=== PATIENT | male | born 2000 | race African-American/Black ===

== ENCOUNTER 2023-08-28 10:16 | Emergency (ER) | payer SELFPAY ==
[2023-08-28] MEDS ORDERED: IBUPROFEN 400 MG TABLET (FP) PO ONE (11:26)
[2023-08-28] MEDS: IBUPROFEN 400 MG TABLET (FP) PO ONE (11:32)
[2023-08-28 12:06] VITALS: BP 143/80; PULSE 86; RESP 18; TEMP 97.5; BMI 24.3
== END 2023-08-28 14:44 | disposition home or self-care (01) ==
LOC: JERFT 10:16
DX: S42.402A Unspecified fracture of lower end of left humerus, initial encounter for closed fracture (principal); M79.89 Other specified soft tissue disorders; W18.39XA Other fall on same level, initial encounter; Y93.66 Activity, soccer
CPT/HCPCS: 73070-TC-LT-FY; 73200-TC-RT; 99284-25